=== PATIENT | male | born 1960 | race Caucasian/White ===

== ENCOUNTER → 2016-09-14 | Outpatient (CLI) | payer MEDICAID ==
[~2016-09-14] MED LIST: BARIUM SULF 2.1% 450 ML BTL (BERRY SMOOTHIE) PO ONE; HYDR-3498 PO; IOHEXOL 300MG/ML 150 ML BTL ONE; SOD CHLORIDE 0.9% 100 ML ONE
--- NOTE | 2016-09-14 12:59 | RADRPT ---
PROCEDURE: US Scrotum. CLINICAL INDICATION: History of left inguinal hernia repair in July 2016 TECHNIQUE: Multiple sonographic images of the scrotal region were obtained utilizing a linear arra y transducer with grayscale and color-flow and a Doppler imaging. The images were reviewed on a high -resolution PACS workstation. COMPARISON: No prior studies are available for comparison. FINDINGS: Right Testis: Size (cm): 3.7 x 2.5 x 2.8 Echotexture: Homogeneous. Hydrocele/Mass: None. Vascularity: Normal arterial inflow and venous outflow. Epidydmis: No significant abnormalities. Left Testis: Size (cm): 4.1 x 1.6 x 2.6 Echotexture: Homogeneous. Hydrocele/Mass: None. Vascularity: Normal arterial inflow and venous outflow. Epidydmis: No significant abnormalities. In the left hemiscrotum, there is a large fluid collection measuring approximately 7 x 4 x 4 cm with numerous septations within it. No significant vascular flow is noted within it including within th e septations. IMPRESSION: Large multi septated fluid collection measuring approximately 7 x 4 x 4 cm in the left hubert scrotum, as above. No bowel loops are noted in the left hemiscrotum to suggest a recurrent hernia. Finding s are nonspecific, but may be a scrotal abscess. Clinical correlation is recommended. This lesion may be better evaluated on the CT study from the same date. No evidence of testicular torsion. RPTAT: EE Physician Naseem Date Time Electronically viewed and signed by Physician Naseem on 09/14/2016 12:59 /
--- NOTE | 2016-09-14 18:30 | RADRPT ---
PROCEDURE: CT abdomen and pelvis with contrast. CLINICAL INDICATION: Pain and inguinal hernia TECHNIQUE: CT scan of the abdomen and pelvis without contrast was performed [facility] axial imaging from the lung bases through the pubis symphysis. The patient was scanned after the uneventful intravenous administration of 100 cc of Omnipaque-300. Oral contrast was also administered. Sagittal and coronal reformatted images were made. CTDI vol 17.91 mGy and DLP 1135.02 mGy-cm One of the following 3 dose reduction techniques were used during this CT examination: automated exp osure control; adjustment of the mA and /or kV according to patient size; or use of iterative recons truciton technique. COMPARISON: CT abdomen pelvis dated 07/16/2016 FINDINGS: CT abdomen: The lung bases are remarkable for a 4 mm right middle lobe pulmonary nodule. No focal infiltrates o r effusions are present. No evidence for pneumothorax is noted. The heart size is normal without p ericardial effusion. The visualized liver is of normal size and attenuation. The spleen, pancreas, gallbladder, and bila teral adrenal glands are normal. The bilateral kidneys are normal. No evidence for hydroureter nephrosis or nephroureterolithiasis i s present. The aorta demonstrates mild vascular calcifications without evidence for aneurysmal dila tation. The visualized bowel is nonobstructive. An abundance of stool is present in the colon and correlate with constipation. No evidence for diverticulosis, diverticulitis or appendicitis is present. Wel l opacified small bowel is present. CT pelvis: The previously described large small bowel herniation is no longer evident. A 3.9 cm fatty left ing uinal hernia is present without evidence for segments of bowel. A large left hydrocele or fluid pino ection is present in the left hemiscrotum which measures 6.6 cm AP by 5 cm in transverse dimensions. Thickening of the left hemiscrotal fascia is present. Recommend scrotal ultrasound to further josie luate. Again noted is a small right lipomatous hernia which measures 3.4 cm in transverse dimension s. No evidence for pelvic masses or ascites is noted. The prostate gland is normal. The surrounding osseous structures are remarkable for degenerative changes the bilateral sacroiliac joints and the imaged spine. Spondylosis is present of the imaged spine with severe degenerative en dplate and disk changes at the L5-S1 level. IMPRESSION: 1. Resolution of previously described large left inguinal hernia with thickening of the fascia and a 3.9 cm fatty hernia remaining. 2. Fluid collection in the left hubert scrotum measuring 6.6 cm AP by 5 cm in transverse dimensions. Differential to include hydrocele, abscess, or seroma. 3. Small right fatty inguinal hernia measuring approximately 3.4 cm in transverse dimensions. 4. 4 mm right middle lobe pulmonary nodule and recommend follow-up chest CT to further evaluate. 5. Mild atherosclerotic vascular disease 6. Spondylosis and degenerative changes of the imaged spine as indicated above. RPTAT: HDC .Haleigh Cespedes MD, Date Time Electronically viewed and signed by .Haleigh Cespedes MD, on 09/14/2016 18:29 .C/
== END | disposition home or self-care (01) ==
LOC: LAB 08:04
PROVIDERS: ATTEND Transplant Surgery
DX: K40.90 Unilateral inguinal hernia, without obstruction or gangrene, not specified as recurrent (principal); Z98.890 Other specified postprocedural states
CPT/HCPCS: 74177; 76870; Q9967; Z7610

== ENCOUNTER 2016-09-28 12:53 | Outpatient (CLI) | payer MEDICAID ==
[~2016-09-28] VITALS: Ht 167.6 cm; Wt 91.4 kg
[~2016-09-28 12:53] MED LIST changes: -BARIUM SULF 2.1% 450 ML BTL (BERRY SMOOTHIE) PO ONE; -IOHEXOL 300MG/ML 150 ML BTL ONE; -SOD CHLORIDE 0.9% 100 ML ONE
[2016-09-28 13:04] VITALS: BP 142/96; PULSE 64; RESP 18; Ht 167.6 cm; Wt 91.4 kg
--- NOTE | 2016-09-28 14:00 | PN ---
Date/Time of Note Date/Time of Note DATE: 09/28/16 TIME: 13:54 Assessment/Plan Assessment/Plan Assessment/Plan [facility] Progress Note Date of Service: 09/28/16 Today's Impression & Plan: Doing well without new issues. Lump in R scrotum likely hematoma or seroma and not a recurrence. Nothing to do and should resorb in time. With above assessment, I've recommended the following for today: 1. F/u with PCP 2. F/u with us prn Thank you again for your great care of this very pleasant patient and wonderful family. If there are any questions, please feel free to call me at [phone]. TOTAL VISIT TIME: 20 minutes of which more than half was spent in [id number] discussion with the patient, possibly including family, as well as coordination of care between multiple physicians and providers. Disclaimer: Inadvertent spelling or grammatical errors are likely due to EHR/ dictation software use and do not reflect on the overall quality of patient care. Updated Clinical Summary: The patient is a very pleasant 55-year-old gentleman with comorbid issues of a BMI of 26.6, as well as atherosclerotic vascular disease, and a known left- sided inguinal hernia for the last 20 years that has progressively gotten worse , with enlargement of the hernia, currently incarcerated and not reducible, but not obstructed. The patient certainly needed surgical intervention and it would not be safe for the patient to be discharged home without an operation. S/ p an otherwise uncomplicated laparoscopic converted to open left inguinal hernia repair with mesh (10 cm x 15 cm) with findings of large inguinal indirect hernia containing bowel that appeared to be viable and no evidence of perforation on 07/16/16. D/c home 07/17/16. CT abd/pelvis and US of scrotum showed no recurrence and only fluid collection. No fevers or visits to ED. Comorbidities: 1. Known left inguinal hernia for the last 20 years, incarcerated acutely; s/p laparoscopic converted to open repair L inguinal hernia with mesh 07/16/16 2. BMI of 26.6. 3. Atherosclerotic vascular disease. Subjective: No major events or complaints; no major abd pain without pain medications; no n/ v/d; no sob or cp; no scrotal or inner thigh numbness; + bowel activity Objective: Vitals: See below Exam: GENERAL: On exam, the patient was sitting up in a chair and appeared to be comfortable and in no acute distress. ABDOMEN: Soft, nontender and nondistended. Incisions are clean, dry and intact without any evidence of erythema, edema, discharge, or hernia. There are no peritoneal signs or guarding. L scrotal mass smaller than 2 months ago. Non- tender. SKIN: Skin appears to be pink and feels warm to touch. NEUROLOGIC: Patient is awake, alert, and follows commands appropriately. Exam/Review of Systems Vital Signs Vitals Vital Signs Date Time Temp Pulse Resp B/P Pulse Ox O2 Delivery O2 Flow Rate FiO2 09/28/16 13:04 97.6 64 18 142/96 97 Room Air WATSON RASMUSSEN M.D. Sep 28, 2016 14:00
== END 2016-09-28 16:48 | disposition home or self-care (01) ==
LOC: HPC 12:53
PROVIDERS: ATTEND Transplant Surgery
DX: K40.90 Unilateral inguinal hernia, without obstruction or gangrene, not specified as recurrent (principal); I70.8 Atherosclerosis of other arteries
CPT/HCPCS: G0463

== ENCOUNTER 2018-07-16 08:21 | Emergency (ER) | END 2018-07-16 11:11 | disposition home or self-care (01) ==

== ENCOUNTER 2018-09-30 05:33 | Day surgery (SDC) | payer OTHER ==
[~2018-09-30] VITALS: Ht 167.6 cm; Wt 83.0 kg
[2018-09-30] VITALS (21 sets, daily range): BP systolic 106–158; BP diastolic 53–100; PULSE 42–66; RESP 12–18; Ht 167.6 cm; Wt 83.0 kg
[2018-09-30] MEDS ORDERED: SOD CHLORIDE 0.9% 1,000 ML IV SCH (06:00)
[2018-09-30] MEDS ORDERED: CEFAZOLIN 2 GM/50 ML (PMX) 50 ML IVPB SCH (06:00)
[2018-09-30] MEDS ORDERED: BUPIVACAINE 0.25% (MPF) 30 ML INJ ONE (07:41)
--- NOTE | 2018-09-30 08:06 | PREAC ---
Date/Time of Note Date/Time of Note DATE: 09/30/18 TIME: 08:04 Anesthesia Eval and Record Evaluation Time Pre-Procedure Interview DATE: 09/30/18 TIME: 08:04 Age 58 Sex male NPO: 8 hrs Preoperative diagnosis Lt inguinal Hernia Planned procedure Lt inguinal Hernia repair Past Medical History Past Medical History: None Surgery & Anesthesia Issues No known issue Meds Anticoagulation: No Beta Jamie within 24 hr: No Reason Beta Jamie not given: Pt. not on B-Jamie Current Medications Cefazolin Sodium/ Dextrose 50 ml @ 100 mls/hr ONCE IVPB ; Start 09/30/18 at 06:00; Stop 09/30/18 at 10:00 Sodium Chloride 1,000 ml @ 75 mls/hr [id number] IV ; Start 09/30/18 at 06:00 Meds reviewed: Yes Allergies Coded Allergies: No Known Allergy (Unverified , 09/30/18) Allergies Reviewed: Yes Labs/Studies Labs Reviewed: Reviewed by anesthesiologist test: N/A Studies: ECG Pre-procedure Exam Last vitals Vital Signs Date Temp Pulse Resp B/P (MAP) Pulse Ox O2 O2 Flow FiO2 Time Delivery Rate 09/30/18 97.4 66 18 134/88 96 Room Air 06:20 (103) Airway: Adequate mouth opening, Adequate thyromental dist Mallampati: Mallampati II Teeth: Normal Lung: Normal Heart: Normal ASA Physical Status ASA physical status: 2 Emergency: None Planned Anesthetic General/MAC: LMA Planned Pain Management Parenteral pain med, Local by surgeon Pre-operative Attestations Prior to commencing anesthesia and surgery, the patient was re-evaluated, there was verification of: *The patient's identity *The results of appropriate recent lab work and preoperative vital signs *The above evaluation not changing prior to induction *Anesthetic plan, risk benefits, alternative and complications discussed with patient/family; questions answered; patient/family understands, accepts and wishes to proceed. MICHAELLE LITTLE MD Sep 30, 2018 08:06
[2018-09-30] MEDS ORDERED: MIDAZOLAM 1 MG/ML 2 ML INJ ONE (08:22)
[2018-09-30] MEDS ORDERED: ONDANSETRON 4 MG INJ ONE (09:01)
[2018-09-30] MEDS ORDERED: LIDOCAINE 2% (SDV) 5 ML INJ ONE (09:06)
[2018-09-30] MEDS ORDERED: GLYCOPYRROLATE 0.4 MG INJ ONE (09:06)
[2018-09-30] MEDS ORDERED: PROPOFOL 20 ML ONE (09:06)
[2018-09-30] MEDS ORDERED: NEOSTIGMINE 3 MG/3 ML SYRINGE ONE (09:07)
[2018-09-30] MEDS ORDERED: CEFAZOLIN 1 GM INJ ONE (09:07)
--- NOTE | 2018-09-30 09:08 | OPR ---
Date/Time of Note Date/Time of Note DATE: 09/30/18 TIME: 09:05 Operative Report Procedure Date: Sep 30, 2018 Preoperative Diagnosis recurrent incarcerated left inguinal hernia Postoperative Diagnosis same Operation/Procedure Performed open recurrent incarcerated left inguinal hernia repair with ultrapro plug mesh Surgeon see signature line [employer] none Anesthesia Type: general Estimated Blood Loss: 0 - 10 ml's Transfusion none Specimen hernia sac contents Grafts/Implants none Complications none Pt Condition Post Procedure: stable Indications This is a 58-year-old male with a recurrent incarcerated left inguinal hernia. He requires surgical repair. Risks alternatives benefits and percent were discussed the patient. Patient expresses understanding and consents to the operation. Procedure Description Patient is taken to the OR and prepped and draped in usual sterile fashion. Surgical time was performed. IV antibiotics were given. Left inguinal oblique incision made with a 10 blade over the prior healed incision. Dissection with cautery was carried through the scar tissue down to the area of the external oblique. Anterior medially there is an incarcerated hernia. Lysis of adhesions was performed to allow mobilization of the hernia contents. Hernia contents are then manually reduced. Additionally cord lipoma was identified and excised. Sent for specimen. The external oblique is opened up a little further to allow identification of this hernia defect. Cord structures were carefully dissected out and identified and retracted with a [place] drain and kept out of harm's way. Medium size ultra pro plug is placed and secured in place from the pubic tubercle along the shelving is unlimited with a running 0 Prolene. Superiorly this is secured to the internal oblique with interrupted 3-0 Vicryl. The external oblique component which has been altered is then reapproximated with a running 0 Prolene. Leland's fascia was closed with interrupted 3-0 Vicryl. Skin was closed using a [employer] observable skin stapler. Therapeutic subcutaneous local anesthesia was injected at the incision site. Dry dressings were applied. Rosa ZEPEDA Sep 30, 2018 09:08
--- NOTE | 2018-09-30 09:14 | PAC ---
Date/Time of Note Date/Time of Note DATE: 09/30/18 TIME: 09:13 Post-Anesthesia Notes Post-Anesthesia Note Last documented vital signs Vital Signs Date Temp Pulse Resp B/P (MAP) Pulse Ox O2 O2 Flow FiO2 Time Delivery Rate 09/30/18 97.8 09:11 09/30/18 66 18 134/88 96 Room Air 06:20 (103) Activity: WNL Respiratory function: WNL Cardiovascular function: WNL Mental status: Baseline Pain reasonably controlled: Yes Hydration appropriate: Yes Nausea/Vomiting absent: Yes Comments BP:145/83, pulse:58, spo2:100%, T:98,8 MICHAELLE LITTLE MD Sep 30, 2018 09:13
[2018-09-30] MEDS ORDERED: LABETALOL HCL 20MG INJ IV PRN (09:30)
[2018-09-30] MEDS ORDERED: MEPERIDINE 25 MG INJ IV PRN (09:30)
[2018-09-30] MEDS ORDERED: HYDROCODONE/APAP (5/325) TAB PO ONE (09:30)
[2018-09-30] MEDS ORDERED: HYDROmorphONE 1 MG/5 ML IV SYRINGE IV PRN ×2 (09:30)
[2018-09-30] MEDS ORDERED: ONDANSETRON 4 MG INJ IV PRN (09:30)
[2018-09-30] MEDS ORDERED: DIPHENHYDRAMINE 50 MG INJ IV PRN (09:30)
[2018-09-30] MEDS ORDERED: METOCLOPRAMIDE 10 MG INJ IV PRN (09:30)
[2018-09-30] MEDS ORDERED: FENTAnyl 50 MCG/ML VIAL IV PRN (09:30)
[2018-09-30] MEDS ORDERED: hydrALAzine 20 MG INJ IV PRN (09:30)
--- NOTE | 2018-10-03 13:46 | RADRPT ---
Vent Rate: 58 bpm RR Interval: 0 msec CO Interval: 212 msec QRS Duration: 92 msec QT Interval: 454 msec QTC Interval: 445 msec P-R-T [place]: 67 - 56 - 64 degrees Sinus bradycardia with 1st degree AV block Otherwise normal ECG Electronically Signed By: Bradley Barraza [id number]
== END 2018-09-30 11:45 | disposition home or self-care (01) ==
LOC: SDS 05:33
PROVIDERS: ATTEND Surgery
DX: K40.91 Unilateral inguinal hernia, without obstruction or gangrene, recurrent (principal); R00.1 Bradycardia, unspecified
CPT/HCPCS: 49521; 71045; 80053; 85025; 85610; 85730; 93005; J0690; J1170; J2175; J2250; J2405; J2710; J3010; Z7610; 88302; C1781

== ENCOUNTER 2019-04-03 09:07 | Day surgery (SDC) | payer OTHER ==
[2019-04-03] VITALS (14 sets, daily range): BP systolic 123–149; BP diastolic 85–98; PULSE 46–61; RESP 10–21; Ht 172.7 cm; Wt 86.9 kg
[~2019-04-03] VITALS: Ht 172.7 cm; Wt 86.9 kg
[~2019-04-03 09:07] MED LIST changes: +CEFAZOLIN 2 GM/50 ML (PMX) 50 ML IVPB SCH; -HYDR-3498 PO; +SOD CHLORIDE 0.9% 1,000 ML IV ONE
--- NOTE | 2019-04-03 13:04 | PREAC ---
Date/Time of Note Date/Time of Note DATE: 04/03/19 TIME: 13:03 Anesthesia Eval and Record Evaluation Time Pre-Procedure Interview DATE: 04/03/19 TIME: 13:03 Age 58 Sex male NPO: 8 hrs Preoperative diagnosis Recurrent left inguinal hernia Planned procedure Open hernia repair with mesh Past Medical History Past Medical History: None Surgery & Anesthesia Issues No known issue Meds Anticoagulation: No Beta Jamie within 24 hr: No Reason Beta Jamie not given: Pt. not on B-Jamie No Active Prescriptions or Reported Meds Current Medications Cefazolin Sodium/ Dextrose 50 ml @ 100 mls/hr ONCE IVPB ; Start 04/03/19 at 06:00; Stop 04/03/19 at 16:00 Sodium Chloride 1,000 ml @ 75 mls/hr [id number] ONCE IV Last administered on 04/03/19at 10:36; Admin Dose 75 MLS/HR; Start 04/03/19 at 06:00; Stop 04/03/19 at 19:19 Meds reviewed: Yes Allergies Coded Allergies: No Known Allergy (Unverified , 04/03/19) Allergies Reviewed: Yes Labs/Studies Labs Reviewed: Reviewed by anesthesiologist Result Diagram: 04/03/1944 04/03/19 0944 Laboratory Tests 04/03/19 09:44 test: N/A Pre-procedure Exam Last vitals Vital Signs Date Temp Pulse Resp B/P (MAP) Pulse Ox O2 O2 Flow FiO2 Time Delivery Rate 04/03/19 98.2 60 16 125/87 98 Room Air 09:57 (100) Airway: Adequate mouth opening Mallampati: Mallampati I Teeth: Abnormal (No teeth) Lung: Normal Heart: Normal ASA Physical Status ASA physical status: 1 Emergency: None Planned Anesthetic General/MAC: ETT Planned Pain Management Parenteral pain med Pre-operative Attestations Prior to commencing anesthesia and surgery, the patient was re-evaluated, there was verification of: *The patient's identity *The results of appropriate recent lab work and preoperative vital signs *The above evaluation not changing prior to induction *Anesthetic plan, risk benefits, alternative and complications discussed with patient/family; questions answered; patient/family understands, accepts and wishes to proceed. MARKOS SIDHU MD Apr 03, 2019 13:04
[2019-04-03] MEDS ORDERED: NEOSTIGMINE 3 MG/3 ML SYRINGE ONE ×2 (13:10→14:26)
[2019-04-03] MEDS ORDERED: SUCCINYLCHOLINE CHLORIDE 100 MG/5 ML SYG IV ONE (13:10)
[2019-04-03] MEDS ORDERED: LIDOCAINE 2% (SDV) 5 ML INJ ONE (13:10)
[2019-04-03] MEDS ORDERED: MEPERIDINE 100 MG INJ ONE (13:10)
[2019-04-03] MEDS ORDERED: ROCURONIUM 50 MG INJ ONE (13:10)
[2019-04-03] MEDS ORDERED: PROPOFOL 20 ML ONE (13:10)
[2019-04-03] MEDS ORDERED: GLYCOPYRROLATE 0.4 MG INJ ONE ×2 (13:10→14:26)
[2019-04-03] MEDS ORDERED: POLYMYXIN/BACITRACIN 1L IRRIG ONE (13:20)
[2019-04-03] MEDS ORDERED: BUPIVACAINE 0.25% (MPF) 30 ML INJ ONE (13:20)
--- NOTE | 2019-04-03 13:25 | RADRPT ---
Vent Rate: 58 bpm RR Interval: 1036 msec NH Interval: 222 msec QRS Duration: 93 msec QT Interval: 435 msec QTC Interval: 427 msec P-R-T [place]: 45 - 46 - 63 degrees Sinus rhythm...normal P axis, V-rate 50- 99 Prolonged NH interval...NH >210, V-rate 50- [address] abn Electronically Signed By: Ra Saxena
[2019-04-03] MEDS ORDERED: HYDROmorphONE 1 MG/5 ML IV SYRINGE IV PRN ×3 (13:30)
[2019-04-03] MEDS ORDERED: METOCLOPRAMIDE 10 MG INJ IV PRN (13:30)
[2019-04-03] MEDS ORDERED: ONDANSETRON 4 MG INJ IV PRN (13:30)
[2019-04-03] MEDS ORDERED: FENTAnyl 50 MCG/ML VIAL IV PRN ×3 (13:30)
[2019-04-03] MEDS ORDERED: MIDAZOLAM 1 MG/ML 2 ML INJ IV PRN (13:30)
[2019-04-03] MEDS ORDERED: EPHEDrine 25 MG/5 ML SYG IV PRN (13:30)
[2019-04-03] MEDS ORDERED: DIPHENHYDRAMINE 50 MG INJ IV PRN (13:30)
[2019-04-03] MEDS ORDERED: hydrALAzine 20 MG INJ IV PRN (13:30)
[2019-04-03] MEDS ORDERED: MEPERIDINE 25 MG INJ IV PRN (13:30)
[2019-04-03] MEDS ORDERED: LABETALOL HCL 20MG INJ IV PRN (13:30)
[2019-04-03] MEDS ORDERED: CEFAZOLIN 1 GM INJ ONE (14:27)
--- NOTE | 2019-04-03 14:28 | OPR ---
Date/Time of Note Date/Time of Note DATE: 04/03/19 TIME: 14:25 Operative Report Procedure Date: Apr 03, 2019 Preoperative Diagnosis left recurrent incarcerated inguinal hernia Postoperative Diagnosis same Operation/Procedure Performed 1. open left recurrent incarcerated inguinal hernia repair with ultrapro plug mesh system 2. therapeutic injection of subcutaneous local anesthesia Surgeon see signature line [employer] Specialist none Anesthesia Type: general Estimated Blood Loss: 0 - 10 ml's Transfusion none Specimen none Grafts/Implants none Complications none Pt Condition Post Procedure: stable Indications This is a 58-year-old male with a recurrent left incarcerated inguinal hernia. He requires surgical repair. Risks alternatives benefits and personal were discussed the patient. Patient expressed understanding consents to the operation. Procedure Description Patient is taken to the OR and prepped and draped in usual sterile fashion. Surgical time was performed. IV antibiotics given. Left inguinal oblique incision was made with a 10 blade. Dissection with cautery skin onto the area of the scar down externally fascia. This area is meticulously dissected and the recurrent indirect incarcerated inguinal hernia was identified. Lysis of adhesions performed in this area is then manually reduced. This area was then bolstered with the disc portion of the ultra pro hernia system mesh. A running 0 Prolene is sutured to fix the disc to the external oblique from medial to laterally. Inferiorly this was also performed to fix to disc portion to the shelving edge of inguinal ligament. The cord structures were kept out of harm's way medially. The externally fascia was then closed primarily using a running 3-0 Vicryl. Interrupted 3-0 Vicryl was used to close Leland's fascia. Skin is closed using in[employer] absorbable skin stapler. Therapeutic contains local anesthesia was injected at the incision site. Dry dressings were applied. Rosa ZEPEDA Apr 03, 2019 14:27
[2019-04-03] MEDS ORDERED: HYDROCODONE/APAP (5/325) TAB PO ONE (14:30)
--- NOTE | 2019-04-03 15:58 | PAC ---
Date/Time of Note Date/Time of Note DATE: 04/03/19 TIME: 15:58 Post-Anesthesia Notes Post-Anesthesia Note Last documented vital signs Vital Signs Date Temp Pulse Resp B/P (MAP) Pulse Ox O2 O2 Flow FiO2 Time Delivery Rate 04/03/19 46 13 124/86 97 Room Air 15:37 (99) 04/03/19 98.0 14:45 Activity: WNL Respiratory function: WNL Cardiovascular function: WNL Mental status: Baseline Pain reasonably controlled: Yes Hydration appropriate: Yes Nausea/Vomiting absent: Yes Comments BT: 98.3 MARKOS SIDHU MD Apr 03, 2019 15:58
== END 2019-04-03 16:30 | disposition home or self-care (01) ==
LOC: SDS 09:07
PROVIDERS: ATTEND Surgery
DX: K40.31 Unilateral inguinal hernia, with obstruction, without gangrene, recurrent (principal)
CPT/HCPCS: 49521; 71045; 80053; 85025; 85610; 85730; 93005; C1781; J0690; J2175; J2710; Z7512; Z7610